=== PATIENT | female | born 1970 | race Two or more races ===

== ENCOUNTER 2020-10-14 22:49 | Emergency (ER) | payer MEDICAID ==
[~2020-10-14] VITALS: Ht 165.1 cm; Wt 70.3 kg
[2020-10-14 23:10] VITALS: BP 144/80
--- NOTE | 2020-10-14 23:10 | NUR ---
ED Nurse Note: pt walked into ED from home s/p fall 2 days ago around 1100 and now has SHAW and bilateral arm pain. Pt reports felt dizzy and fell back and hit her head, she denied loss of conciousness. Pt reports she takes BP meds and took her med at 0700 that morning. Pt is AAOx4, breathing even and unlabored with stable vital signs.
[2020-10-14] MEDS ORDERED: Tylenol #3 tab (300mg/30mg) ORAL ONE (23:30)
--- NOTE | 2020-10-15 00:38 | NUR ---
ED Nurse Note: pt went down to CT via w/c accompanied by CT staff, pt in stable condition.
--- NOTE | 2020-10-15 00:57 | Diagnostic Imaging Report ---
EXAM: CT Head Without Intravenous Contrast CLINICAL HISTORY: FALL TECHNIQUE: Axial computed tomography images of the head/brain without intravenous contrast. CTDI is 53.40 mGy and DLP is 1018.80 mGy-cm. One or more of the following dose reduction techniques were used: automated exposure control, adjustment of the mA and/or kV according to patient size, use of iterative reconstruction technique. COMPARISON: No relevant prior studies available. FINDINGS: Brain: Unremarkable. No hemorrhage. No significant white matter disease. No edema. Ventricles: Unremarkable. No ventriculomegaly. Bones/joints: Unremarkable. No acute fracture. Soft tissues: Unremarkable. Sinuses: Unremarkable as visualized. No acute sinusitis. Mastoid air cells: Unremarkable as visualized. No mastoid effusion. IMPRESSION: Unremarkable head/brain CT.
--- NOTE | 2020-10-15 01:08 | NUR ---
ED Nurse Note: pt back from CT in stable condition
--- NOTE | 2020-10-15 01:32 | Diagnostic Imaging Report ---
EXAM: CT Cervical Spine Without Intravenous Contrast CLINICAL HISTORY: FALL TECHNIQUE: Axial computed tomography images of the cervical spine without intravenous contrast. CTDI is 20.20 mGy and DLP is 477.80 mGy-cm. One or more of the following dose reduction techniques were used: automated exposure control, adjustment of the mA and/or kV according to patient size, use of iterative reconstruction technique. Coronal and sagittal reformatted images were created and reviewed. Axial reformatted images were created and reviewed. COMPARISON: No relevant prior studies available. FINDINGS: Vertebrae: Unremarkable. No acute fracture. Discs/spinal canal/neural foramina: No acute findings. No spinal canal stenosis. Soft tissues: Unremarkable. IMPRESSION: Unremarkable cervical spine CT.
[2020-10-15] MEDS ORDERED: TYLENOL EXTRA500 MG ORAL (01:53)
[2020-10-15] MEDS ORDERED: ROBAXIN-750750 MG PO (01:53)
--- NOTE | 2020-10-15 01:59 | Emergency Room Report ---
History of Present Illness General Chief Complaint: Multiple Trauma/Fall Source: Patient Present Illness HPI 50-year-old female presents with headache and neck pain status post fall. Had mechanical trip and fall 2 days ago. Denies LOC. Complaining of headache and neck pain and dizziness. Pain is dull, 6 out of 10, nonradiating. Denies any other injuries. No other aggravating relieving factors. Denies any other associated symptoms Allergies: Coded Allergies: No Known Allergies (Unverified , 10/14/20) COVID-19 Screening Contact w/high risk pt: No Experienced COVID-19 symptoms?: No COVID-19 Testing performed [employer]: No Patient History Past Medical History: HTN Past Surgical History: none Pertinent Family History: none Social History: Denies: smoking, alcohol use, drug use Now: No Immunizations: UTD Reviewed Nursing Documentation: PMH: Agreed; PSxH: Agreed Nursing Documentation-PMH Hx Hypertension: Yes Review of Systems All Other Systems: negative except mentioned in HPI Physical Exam Vital Signs Date Time Temp Pulse Resp B/P (MAP) Pulse Ox O2 Delivery O2 Flow Rate FiO2 10/14/20 23:10 98.6 87 16 144/80 98 Room Air Sp02 EP Interpretation: reviewed, normal General Appearance: no apparent distress, alert, GCS 15, non-toxic Head: normocephalic, atraumatic Eyes: bilateral eye normal inspection, bilateral eye PERRL ENT: hearing grossly normal, normal pharynx, no angioedema, normal voice Neck: full range of motion, supple/symm/no masses, tender midline Respiratory: chest non-tender, lungs clear, normal breath sounds, speaking full sentences Cardiovascular #1: regular rate, rhythm, no edema Cardiovascular #2: 2+ carotid (R), 2+ carotid (L), 2+ radial (R), 2+ radial (L), 2+ dorsalis pedis (R), 2+ dorsalis pedis (L) Gastrointestinal: normal bowel sounds, non tender, soft, non-distended, no guarding, no rebound Rectal: deferred Genitourinary: normal inspection, no CVA tenderness Musculoskeletal: back normal, normal range of motion, gait/station normal, non- tender Neurologic: alert, motor strength/tone normal, oriented x3, sensory intact, responsive, speech normal Psychiatric: judgement/insight normal, memory normal, mood/affect normal, no suicidal/homicidal ideation Reflexes: 3+ bicep (R), 3+ bicep (L), 3+ tricep (R), 3+ tricep (L), 3+ knee (R), 3+ knee (L) Lymphatic: no adenopathy Medical Decision Making Diagnostic Impression: Primary Impression: Head injury Qualified Codes: S09.90XA - Unspecified injury of head, initial encounter Additional Impression: Multiple injuries due to trauma ER Course Hospital Course 50-year-old female presents with headache and neck pain status post fall Differential diagnoses include: skull fx, intracranial injury, concussion Clinical course Patient placed on stretcher. After initial history and physical I ordered CT head/C-spine and pain medications CT head and C-spine shows no acute process. On reassessment pain improved. Reassurance given. Safe for discharge with close outpatient follow-up. Diagnosis - head injury, multiple injuries due to trauma Stable and discharged to home with Rx Tylenol, robaxin. Followup with PMD. Return to ED if symptoms recur or worsen CT/MRI/US Diagnostic Results CT/MRI/US Diagnostic Results #1: Imaging Test Ordered: CT Head Impression Procedure: CT Head no Contrast EXAM: CT Head Without Intravenous Contrast CLINICAL HISTORY: FALL TECHNIQUE: Axial computed tomography images of the head/brain without intravenous contrast. CTDI is 53.40 mGy and DLP is 1018.80 mGy-cm. One or more of the following dose reduction techniques were used: automated exposure control, adjustment of the mA and/or kV according to patient size, use of iterative reconstruction technique. COMPARISON: No relevant prior studies available. FINDINGS: Brain: Unremarkable. No hemorrhage. No significant white matter disease. No edema. Ventricles: Unremarkable. No ventriculomegaly. Bones/joints: Unremarkable. No acute fracture. Soft tissues: Unremarkable. Sinuses: Unremarkable as visualized. No acute sinusitis. Mastoid air cells: Unremarkable as visualized. No mastoid effusion. IMPRESSION: Unremarkable head/brain CT. CT/MRI/US Diagnostic Results #2: Imaging Test Ordered: CT C spine Impression Procedure: CT C Spine no Contrast EXAM: CT Cervical Spine Without Intravenous Contrast CLINICAL HISTORY: FALL TECHNIQUE: Axial computed tomography images of the cervical spine without intravenous contrast. CTDI is 20.20 mGy and DLP is 477.80 mGy-cm. One or more of the following dose reduction techniques were used: automated exposure control, adjustment of the mA and/or kV according to patient size, use of iterative reconstruction technique. Coronal and sagittal reformatted images were created and reviewed. Axial reformatted images were created and reviewed. COMPARISON: No relevant prior studies available. FINDINGS: Vertebrae: Unremarkable. No acute fracture. Discs/spinal canal/neural foramina: No acute findings. No spinal canal stenosis. Soft tissues: Unremarkable. IMPRESSION: Unremarkable cervical spine CT. Last Vital Signs Date Time Temp Pulse Resp B/P (MAP) Pulse Ox O2 Delivery O2 Flow Rate FiO2 10/15/20 00:06 98.6 10/14/20 23:10 87 16 158/82 (107) 98 Room Air Status: improved Disposition: HOME, SELF-CARE Condition: Stable Scripts Methocarbamol* (ROBAXIN-750*) 750 Mg Tablet 750 MG PO TID, #21 TAB 0 Refills Prov: Damon Zambrano MD 10/15/20 Acetaminophen* (TYLENOL EXTRA STRENGTH*) 500 Mg Tablet 500 MG ORAL Q8H PRN for Prn Headache/Temp > 101, #30 TAB 0 Refills Prov: Damon Zambrano MD 10/15/20 Patient Instructions: Head Injury, Adult, [id number] Damon Zambrano MD Oct 15, 2020 01:59
[2020-10-15 02:00] VITALS: BP 128/79
--- NOTE | 2020-10-15 02:00 | NUR ---
ER DISCHARGE NOTE: Patient is cleared to be discharged per ERMD, pt is aox4, on room air, with stable vital signs. pt was given dc and electronic prescriptions sent to preferred pharmacy, pt was able to verbalize understanding, pt id band removed. pt is able to ambulate with steady gait. pt took all belongings.
== END 2020-10-15 02:00 | disposition home or self-care (01) ==
LOC: EMR 23:49
DX: S09.90XA Unspecified injury of head, initial encounter (principal); W01.0XXA Fall on same level from slipping, tripping and stumbling without subsequent striking against object, initial encounter; Y92.9 Unspecified place or not applicable; M54.2 Cervicalgia; R51.9 Headache, unspecified; R42 Dizziness and giddiness; I10 Essential (primary) hypertension
CPT/HCPCS: 70450; 72125; Z7502; 99284